=== PATIENT | male | born 1945 | race Caucasian/White ===

== ENCOUNTER 2023-11-30 20:56 | Emergency (ER) | payer MEDICARE ==
[~2023-11-30] VITALS: Ht 172.7 cm; Wt 99.8 kg
[2023-11-30 21:07] VITALS: BP 156/75
[2023-11-30] MEDS ORDERED: METO25 (21:13)
[2023-11-30 21:26] LABS: BASOPHILS ABSOLUTE AUTO 0.07 K/mm3 (0.00-0.23); BASOPHILS PERCENT AUTO 1 % (0-2); EOSINOPHILS ABSOLUTE AUTO 0.19 K/mm3 (0.00-0.68); EOSINOPHILS PERCENT AUTO 3 % (0-6); Hemoglobin 11.6 g/dL (13.5-17.5); IMMATURE GRAN ABSOLUTE AUTO 0.02 K/mm3 (0.00-0.10); IMMATURE GRAN PERCENT AUTO 0 % (0-1); LYMPHOCYTES ABSOLUTE AUTO 1.49 K/mm3 (0.84-5.20); LYMPHOCYTES PERCENT AUTO 20 % (21-46); MONOCYTES ABSOLUTE AUTO 0.66 K/mm3 (0.16-1.47); MONOCYTES PERCENT AUTO 9 % (4-13); Mean Corpuscular HGB Conc 33.1 g/dL (31.5-36.5); Mean Corpuscular Volume 99 fL (80-100); Mean Platelet Volume 12.8 fL (9.1-12.4); NEUTROPHILS ABSOLUTE AUTO 4.97 K/mm3 (1.96-9.15); NEUTROPHILS PERCENT AUTO 67 % (41-73); Platelet Count 152 K/mm3 (150-400); RDW Coefficient Variation 12.1 % (11.7-14.2); Red Blood Cell Count 3.52 M/mm3 (4.30-5.90)
[2023-11-30 21:44] LABS: Albumin, Blood 3.8 g/dL (3.4-5.0); Albumin/Globulin Ratio 1.1 (0.8-1.8); Bilirubin, Total 0.8 mg/dL (0.1-1.0); Bun/Creatinine Ratio 31.2 (12.0-20.0); Calcium, Blood 8.9 mg/dL (8.5-10.1); Creatinine, Blood 0.8 mg/dL (0.60-1.20); Globulin, Blood 3.4 g/dL (2.2-4.0); Potassium, Blood 3.7 mmol/L (3.5-5.5); Total Protein, Blood 7.2 g/dL (6.4-8.2)
== END 2023-11-30 23:11 | disposition home or self-care (01) ==
LOC: ER 20:56
PROVIDERS: Physician Assistant
DX: A09 Infectious gastroenteritis and colitis, unspecified (principal); Z88.5 Allergy status to narcotic agent
CPT/HCPCS: 80053; 85025; 96360; 96361; 99284-25; J7030

== ENCOUNTER 2024-06-19 02:44 | Inpatient (IN) | payer MEDICARE ==
[~2024-06-19] VITALS: Ht 175.3 cm; Wt 86.9 kg
[~2024-06-19 02:44] MED LIST: METO25
[2024-06-19] MEDS ORDERED: FentaNYL Citrate 50 MCG/ML 2 ML Injection IV PRN (03:50)
[2024-06-19] MEDS ORDERED: NS 1,000 ML IV SCH (04:15)
[2024-06-19 04:25] LABS: BASOPHILS ABSOLUTE AUTO 0.05 K/mm3 (0.00-0.23); BASOPHILS PERCENT AUTO 1 % (0-2); EOSINOPHILS ABSOLUTE AUTO 0.06 K/mm3 (0.00-0.68); EOSINOPHILS PERCENT AUTO 1 % (0-6); Hematocrit 33.7 % (37.0-53.0); Hemoglobin 11.1 g/dL (13.5-17.5); IMMATURE GRAN ABSOLUTE AUTO 0.02 K/mm3 (0.00-0.10); IMMATURE GRAN PERCENT AUTO 0 % (0-1); LYMPHOCYTES ABSOLUTE AUTO 0.98 K/mm3 (0.84-5.20); LYMPHOCYTES PERCENT AUTO 12 % (21-46); MONOCYTES PERCENT AUTO 8 % (4-13); Mean Corpuscular HGB 32.9 pg (26.0-34.0); Mean Corpuscular HGB Conc 32.9 g/dL (31.5-36.5); Mean Corpuscular Volume 100 fL (80-100); Mean Platelet Volume 11.8 fL (9.1-12.4); NEUTROPHILS ABSOLUTE AUTO 6.58 K/mm3 (1.96-9.15); NEUTROPHILS PERCENT AUTO 79 % (41-73); Platelet Count 143 K/mm3 (150-400); RDW Coefficient Variation 12.2 % (11.7-14.2); RDW Standard Deviation 45.1 fL (35.1-46.3); Red Blood Cell Count 3.37 M/mm3 (4.30-5.90); White Blood Cell Count 8.39 K/mm3 (4.00-11.30)
[2024-06-19 04:48] LABS: Albumin, Blood 3.6 g/dL (3.4-5.0); Albumin/Globulin Ratio 1.2 (0.8-1.8); Bilirubin, Total 0.9 mg/dL (0.1-1.0); Calcium, Blood 8.6 mg/dL (8.5-10.1); Creatinine, Blood 0.89 mg/dL (0.60-1.20); Potassium, Blood 4.1 mmol/L (3.5-5.5); Total Protein, Blood 6.6 g/dL (6.4-8.2)
[2024-06-19] MEDS ORDERED: Lactated Ringer's 1,000 ML IV SCH (07:30)
[2024-06-19] MEDS ORDERED: Ondansetron 4 MG TAB PO PRN (07:30)
[2024-06-19] MEDS ORDERED: OxyCODONE HCL 5 MG TAB PO PRN (07:30)
[2024-06-19] MEDS ORDERED: HYDROmorphone HCl/Pf 1MG SYR IV PRN (07:30)
[2024-06-19] MEDS ORDERED: Acetaminophen 325 MG TABLET PO PRN (07:35)
[2024-06-19] MEDS ORDERED: Sennosides 8.6 MG Tab PO SCH (09:00)
[2024-06-19 10:52] VITALS: BP 121/94
[2024-06-19 10:53] VITALS: BP 110/63
[2024-06-19] MEDS ORDERED: CARBIDOPA LEVODOPA PO (11:10)
[2024-06-19] MEDS ORDERED: ZESTRIL40 M1 PO (11:11)
[2024-06-19 14:18] VITALS: BP 103/75
[2024-06-19] MEDS ORDERED: Levodopa/Carbidopa 100 / 25 MG Tab PO SCH (15:00)
--- NOTE | 2024-06-19 17:53 | NUR ---
SHIFT SUMMARY PT ADMITTED THIS SHIFT FOR R HIP FX, A/OX4, VSS, TOLERATED A SIP OF WATER WHEN HE TOOK HIS MEDS, DIET ORDERED FOR DINNER AFTER SURGERY SAID NO SURGERY WOULD BE HAPPENIN TODAY, HARD OF HEARING BUT ABLE TO UNERSTAND IF STAFF SPEAKS LOUDER TO HIM, POLITE AND COOPERATIVE WITH STAFF, BEDREST ORDERED. NO ACUTE EVENTS THIS SHIFT, CALL LIGHT IN REACH.
[2024-06-19 20:37] VITALS: BP 117/58
[2024-06-20 03:56] VITALS: BP 125/63
--- NOTE | 2024-06-20 05:04 | NUR ---
SHIFT SUMMARY S/P R HIP FX R/T GLF. NO ACUTE CHANGES OVERNIGHT. PT NPO SINCE MIDNIGHT IN ANTICIPATION OF POSSIBLE SURGERY TODAY. PT USES URINAL, NO BM OVERNIGHT. PT ON BEDREST OVERNIGHT. PT REPORTS INCREASED PAIN WHEN BENDING AT HIPS, MEDICATED PER EMAR- PT REPORTS TOLERABLE. PT SLEPT WELL OVERNIGHT. CALL LIGHT IN REACH, BED IN LOWEST POSITION, WILL REPORT TO DAY RN.
[2024-06-20 05:07] LABS: BASOPHILS ABSOLUTE AUTO 0.04 K/mm3 (0.00-0.23); BASOPHILS PERCENT AUTO 1 % (0-2); EOSINOPHILS ABSOLUTE AUTO 0.13 K/mm3 (0.00-0.68); EOSINOPHILS PERCENT AUTO 2 % (0-6); Hemoglobin 10.5 g/dL (13.5-17.5); IMMATURE GRAN ABSOLUTE AUTO 0.01 K/mm3 (0.00-0.10); IMMATURE GRAN PERCENT AUTO 0 % (0-1); LYMPHOCYTES ABSOLUTE AUTO 0.75 K/mm3 (0.84-5.20); LYMPHOCYTES PERCENT AUTO 12 % (21-46); MONOCYTES ABSOLUTE AUTO 0.77 K/mm3 (0.16-1.47); MONOCYTES PERCENT AUTO 12 % (4-13); Mean Corpuscular HGB 33.2 pg (26.0-34.0); Mean Corpuscular HGB Conc 32.8 g/dL (31.5-36.5); Mean Corpuscular Volume 101 fL (80-100); Mean Platelet Volume 11.3 fL (9.1-12.4); NEUTROPHILS ABSOLUTE AUTO 4.57 K/mm3 (1.96-9.15); NEUTROPHILS PERCENT AUTO 73 % (41-73); Platelet Count 125 K/mm3 (150-400); RDW Coefficient Variation 12.3 % (11.7-14.2); RDW Standard Deviation 46.3 fL (35.1-46.3); Red Blood Cell Count 3.16 M/mm3 (4.30-5.90); White Blood Cell Count 6.27 K/mm3 (4.00-11.30)
[2024-06-20 05:26] LABS: Albumin, Blood 3.4 g/dL (3.4-5.0); Albumin/Globulin Ratio 1.2 (0.8-1.8); Bilirubin, Total 1.9 mg/dL (0.1-1.0); Calcium, Blood 8.5 mg/dL (8.5-10.1); Creatinine, Blood 0.8 mg/dL (0.60-1.20); Globulin, Blood 2.9 g/dL (2.2-4.0); Potassium, Blood 4.2 mmol/L (3.5-5.5); Total Protein, Blood 6.3 g/dL (6.4-8.2)
[2024-06-20 07:27] VITALS: BP 113/59
[2024-06-20] MEDS ORDERED: Lisinopril 20 MG Tab PO SCH (09:00)
[2024-06-20 14:16] VITALS: BP 122/73
--- NOTE | 2024-06-20 16:35 | NUR ---
SHIFT SUMMARY NONSURGICAL R HIP FX. PHYSICAL THERAPY EVAL TODAY. TTWB. PT UNABLE TO FOLLOW MOST INSTRUCTIONS R/T TO COGNITION. PT A+O X4 THIS MORNING, BUT CONFUSED THIS AFTERNOON AND NEEDING TO BE REORIENTED FREQUENTLY. DILAUDID FOR PAIN X1 THIS AM, BUT PT APPEARS COMFORTABLE AT REST IN BED. ASSISTING PT WITH URINAL. FAMILY UPDATED ON TREATMENT PLAN. BED ALARM IN PLACE FOR SAFETY. CALL LIGHT WITHIN REACH.
[2024-06-20 19:23] VITALS: BP 104/76
[2024-06-21 04:32] VITALS: BP 87/56
[2024-06-21 04:39] VITALS: BP 104/65
[2024-06-21 04:43] LABS: BASOPHILS ABSOLUTE AUTO 0.02 K/mm3 (0.00-0.23); BASOPHILS PERCENT AUTO 0 % (0-2); EOSINOPHILS PERCENT AUTO 0 % (0-6); Hemoglobin 11.9 g/dL (13.5-17.5); IMMATURE GRAN ABSOLUTE AUTO 0.11 K/mm3 (0.00-0.10); IMMATURE GRAN PERCENT AUTO 1 % (0-1); LYMPHOCYTES ABSOLUTE AUTO 0.37 K/mm3 (0.84-5.20); LYMPHOCYTES PERCENT AUTO 2 % (21-46); MONOCYTES ABSOLUTE AUTO 1.02 K/mm3 (0.16-1.47); MONOCYTES PERCENT AUTO 6 % (4-13); Mean Corpuscular HGB 33.4 pg (26.0-34.0); Mean Corpuscular Volume 98 fL (80-100); Mean Platelet Volume 12.1 fL (9.1-12.4); NEUTROPHILS ABSOLUTE AUTO 14.69 K/mm3 (1.96-9.15); NEUTROPHILS PERCENT AUTO 91 % (41-73); Platelet Count 130 K/mm3 (150-400); RDW Standard Deviation 43.7 fL (35.1-46.3); Red Blood Cell Count 3.56 M/mm3 (4.30-5.90); White Blood Cell Count 16.21 K/mm3 (4.00-11.30)
[2024-06-21] MEDS ORDERED: NS 500 ML IV ONE ×2 (04:50→15:25)
--- NOTE | 2024-06-21 04:50 | NUR ---
MANAGER CHINESE CALLED RN TO ROOM REGARDING VS.BP 87/56,HEART RATE BETWEEN 128-137 RHYTHMN PRESENTS REGULAR,R/A 02 SAT 84-85%,PT HAS BEEN REMOVING HIS O2 TONIGHT.CURRENTLY REPLACED O2 AT 3L WITH SATS 92 % PT HAS HX PARKINSONS AND HAS ALSO BEEN CONFUSED TONIGHT.I CALLED DR COPE WITH REPORT OF ABOVE AND ORDER WAS RECEIVED FOR TELE AND 500 ML NS BOLUS.LABS REVIEWED WITH CALL.
[2024-06-21 04:58] LABS: Bun/Creatinine Ratio 34.8 (12.0-20.0); Calcium, Blood 8.8 mg/dL (8.5-10.1); Creatinine, Blood 1.12 mg/dL (0.60-1.20); Potassium, Blood 4.4 mmol/L (3.5-5.5)
--- NOTE | 2024-06-21 06:04 | NUR ---
DR CONSULT DR NOTIFIED OF TELE EVENTS. 0540- AFIB c PVS, 0556 - TACHY IN 150S. LOPRESSOR x1 ORDERED PER EMAR.
[2024-06-21] MEDS ORDERED: Metoprolol Tartrate 1 MG/ML 5 ML VIAL IV ONE (06:10)
[2024-06-21 06:20] VITALS: BP 124/92
--- NOTE | 2024-06-21 06:33 | NUR ---
SHIFT SUMMARY S/P R HIP FX R/T GLF. PT A&O x1-2, PT HAS MOMENTS OF CLEAR CONVERSATION BUT REMAINS CONFUSED AND NOT ORIENTED TO SITUATION. PT UNABLE TO TOLERATE ORALS WITH MORNING MED PASS, ATTEMPTED TO HAVE PT DRINK WATER- POOR SUCK REFLEX & PT DID NOT SWALLOW WATER. IV FLUIDS INFUSING PER EMAR. VS: PT ON 3-4L O2 VIA NC TO MAINTAIN SAT >90%, TELE- AFIB, TACHY UP TO 150s. PT INCONTINENT, DOES NOT CALL TO USE URINAL, ATTEND IN USE; NO BM OVERNIGHT. PT REPORTS NO PAIN OVERNIGHT, MINIMAL WINCING WHEN ROLLING PT. PT ATTEMPTING TO GET OUT OF BED INDEPENDENTLY, ORDERED BEDREST c TTWB ON RLE. POSSIBLE MRI TODAY. CALL LIGHT IN REACH, BED IN LOWEST POSITION, REPORT GIVEN TO DAY RN.
[2024-06-21 08:18] VITALS: BP 117/88
--- NOTE | 2024-06-21 09:23 | NUR ---
MENTATION: PT CONFUSED, MUMBLING. PT CANT SEEM TO FIGURE OUT HOW TO USE STRAW TO DRINK. PT REFUSING PO MEDS OR SIPS OF LIQUIDS. STATES HE "DOESNT TRUST" STAFF. PT STATES HE WANTED TO TALK TO . ASSISTED PT TO CALL SPOUSE AND TALK TO HER. STATES SHE WILL ASK SON TO COME IN TO SEE PATIENT.
--- NOTE | 2024-06-21 10:00 | NUR ---
TELEMETRY: PT CONVERTED TO NSR IN THE 70'S.
--- NOTE | 2024-06-21 12:29 | NUR ---
PO INTAKE: FAMILY IN TO SEE PATIENT. UPDATED ON PLAN OF CARE. FAMILY LOVING AND ATTENTIVE. WILL BRING IN PT COMFORT ITEMS. FAMILY SHARED LIST OF FOODS PT LIKES TO HELP HIM START EATING. ABLE TO GET PT TO TAKE SEVERAL BITES OF FOOD AND PT DRINKING LIQUIDS WITHOUT SIGNS OF CHOKING.
[2024-06-21 15:01] VITALS: BP 82/65
--- NOTE | 2024-06-21 15:25 | NUR ---
BLOOD PRESSURE: PT HYPOTENSIVE 80'S/60'S. TELE REMAINS NSR IN THE 70'S. PT HAS POOR PO INTAKE AND UO. BLADDER SCAN 105CC RESULT. LR INFUSING AT 50CC/HR. NOTIFIED AND BOLUS ORDERED. MAINTENENCE FLUID RATE CHANGED TO 100CC/HR. WILL MONITOR EFFECTIVENESS.
[2024-06-21] MEDS ORDERED: CefTRIAXone Sodium 1,000 MG in NS 100 ML IV SCH (16:40)
[2024-06-21] MEDS ORDERED: NS 1,000 ML IV SCH (16:40)
--- NOTE | 2024-06-21 17:17 | NUR ---
CXR COMPLETED. WILL AWAIT RESULTS.
--- NOTE | 2024-06-21 18:49 | NUR ---
PT NONSURGICAL BEDREST PATIENT. UNABLE TO FOLLOW WEIGHT BEARING RESTRICTIONS. PT REMAINS CONFUSED, PULLS AT LINE. LOW BLOOD PRESSURE THIS SHIFT. BOLUS X1. MAINTENENCE FLUIS INCREASED. PT HAS NOT VOIDED. UA ORDERED WHEN VOIDS. ATTENDS ON. MEPILEX TO COCCYX, PREVENTATIVE. BLOOD CULTURES DRAWN. CXR COMPLETED. O2 AT 2L AT THIS TIME. NO COUGH. TELE IN PLACE. CONVERTED FROM AFIB TO NSR. PT WBC COUNT INCREASED. STARTED ON REOCEPHIN POST BLOOD CULTURES. AM LABS ORDERED. BED ALARM ON.
[2024-06-21 19:44] VITALS: BP 91/69
[2024-06-22] VITALS (34 sets, daily range): BP systolic 61–106; BP diastolic 48–83
[2024-06-22 04:34] LABS: BASOPHILS ABSOLUTE AUTO 0.02 K/mm3 (0.00-0.23); BASOPHILS PERCENT AUTO 0 % (0-2); EOSINOPHILS PERCENT AUTO 0 % (0-6); Hematocrit 34.6 % (37.0-53.0); Hemoglobin 11.8 g/dL (13.5-17.5); IMMATURE GRAN ABSOLUTE AUTO 0.09 K/mm3 (0.00-0.10); IMMATURE GRAN PERCENT AUTO 1 % (0-1); LYMPHOCYTES ABSOLUTE AUTO 0.63 K/mm3 (0.84-5.20); LYMPHOCYTES PERCENT AUTO 4 % (21-46); MONOCYTES ABSOLUTE AUTO 0.92 K/mm3 (0.16-1.47); MONOCYTES PERCENT AUTO 5 % (4-13); Mean Corpuscular HGB 33.4 pg (26.0-34.0); Mean Corpuscular HGB Conc 34.1 g/dL (31.5-36.5); Mean Corpuscular Volume 98 fL (80-100); Mean Platelet Volume 12.3 fL (9.1-12.4); NEUTROPHILS ABSOLUTE AUTO 15.57 K/mm3 (1.96-9.15); NEUTROPHILS PERCENT AUTO 90 % (41-73); Platelet Count 122 K/mm3 (150-400); RDW Coefficient Variation 12.4 % (11.7-14.2); RDW Standard Deviation 44.6 fL (35.1-46.3); Red Blood Cell Count 3.53 M/mm3 (4.30-5.90); White Blood Cell Count 17.23 K/mm3 (4.00-11.30)
[2024-06-22 04:55] LABS: Albumin, Blood 3.2 g/dL (3.4-5.0); Albumin/Globulin Ratio 0.9 (0.8-1.8); Bilirubin, Total 2.3 mg/dL (0.1-1.0); Bun/Creatinine Ratio 31.6 (12.0-20.0); Calcium, Blood 8.5 mg/dL (8.5-10.1); Creatinine, Blood 2.09 mg/dL (0.60-1.20); Globulin, Blood 3.4 g/dL (2.2-4.0); Phosphorus, Blood 4.9 mg/dL (2.5-4.9); Potassium, Blood 4.4 mmol/L (3.5-5.5); Total Protein, Blood 6.6 g/dL (6.4-8.2)
--- NOTE | 2024-06-22 05:22 | NUR ---
SHIFT SUMMARY MARGOT WAS ALERT AND ORIENTED TO SELF AT START OF SHIFT. PT CONFUSED. UA COLLECTED AND SENT TO LAB. PT B/P NOTED TO BE TRENDING DOWN, DR PEREZ, LACTIC ACID ORDERED, CRITICAL RESULT RECIEVED 2.2. HOSPITALIST NOTIFIED. NO ACUTE EVENTS TONIGHT NO OTHER CHANGES NOTED.
[2024-06-22 05:40] LABS: Source, Urine Clean Catch
[2024-06-22 05:42] LABS: Blood, Urine 1+ (Neg); Glucose Qualitative, Urine Neg (Neg); Ketones, Urine 1+ (Neg); Leukocyte Esterase, Urine 3+ (Neg); Nitrite, Urine Neg (Neg); Protein, Urine 2+ (Neg); Urobilinogen, Urine 2+ (Normal)
--- NOTE | 2024-06-22 05:46 | NUR ---
PT WITH CONTINUED CONFUSION THIS SHIFT AND CONT HYPOTENSION,REVIEWED PT RECORDS AND CALLED DR REQUESTING LACTIC DRAW.LACTIC WAS DRAWN AND RESULTS REPORTED BACK POSITIVE.U/A WAS SENT,IV FLUIDS ALREADY INFUSING.RESULTS REPORTED TO DR COPE.
[2024-06-22 05:49] LABS: Appearance, Urine Hazy (Clear); Bilirubin, Urine 1+ (Neg); Color, Urine Yellow (P-Yellow)
[2024-06-22 05:53] LABS: Amorphous Mod (0-Heavy); Bacteria Mod /hpf; Calcium Oxalate Crystals Rare /hpf; Granular Casts 0-2 /lpf (0); Squamous Epithelial Cells Many /hpf (Few)
--- NOTE | 2024-06-22 13:42 | NUR ---
Trevena TYLER NOTIFIED THIS RN AT 1330 THAT PT CONVERTED FROM NSR TO AFIB, SUSTAINED 120'S TO 130'S. BP 97/65, TEMP 98.6, O2 SATURATION 92%, AND RR 20. PT REPORTS FEELING SHORT OF BREATH, HE IS SLIGHTLY DIAPHORETIC, LUNG SOUNDS DIM T/O WITH CRACKLES IN THE BASES. DR. MOREIRA NOTIFIED AT 1339 OF CHANGE IN PT'S CONDITION. WAITING FOR ORDERS AT THIS TIME.
[2024-06-22] MEDS ORDERED: Digoxin 0.25 MG/ML 2ML Amp IV ONE (14:00)
[2024-06-22] MEDS ORDERED: LevoFLOXacin 500MG/D5W 100ML 100 ML IV ONE (14:00)
[2024-06-22] MEDS ORDERED: Enoxaparin 30 MG/0.3 ML SYR SC SCH (14:20)
[2024-06-22] MEDS ORDERED: Furosemide 20 MG Tab PO SCH (14:20)
[2024-06-22 14:37] LABS: Albumin, Blood 2.9 g/dL (3.4-5.0); Albumin/Globulin Ratio 0.9 (0.8-1.8); Bilirubin, Direct 0.6 mg/dL (0.0-0.3); Bilirubin, Indirect 0.9 mg/dL (0.1-0.7); Bilirubin, Total 1.5 mg/dL (0.1-1.0); Bun/Creatinine Ratio 36.9 (12.0-20.0); Calcium, Blood 8.2 mg/dL (8.5-10.1); Creatinine, Blood 1.98 mg/dL (0.60-1.20); Globulin, Blood 3.2 g/dL (2.2-4.0); Potassium, Blood 3.8 mmol/L (3.5-5.5); Total Protein, Blood 6.1 g/dL (6.4-8.2)
--- NOTE | 2024-06-22 14:50 | NUR ---
DIGOXIN GIVEN AND HR IS NOW LOW 100'S, PT REMAINS IN AFIB. PT'S RESP RATE AND EFFORT APPEARS IMPROVED. SPOKE WITH DR. MOREIRA REGARDING NEED FOR DVT PROPHYLAXIS, LOVENOX ORDERED AND ADMINISTERED. LEVAQUIN ABX STARTED, SEE EMAR. TELEGRAPHER AGENT COMPLETING ECHO AT THIS TIME.
[2024-06-22] MEDS ORDERED: Aspirin 325 MG Tab PO SCH (16:00)
[2024-06-22] MEDS ORDERED: Atorvastatin 40 MG Tab PO SCH (16:00)
--- NOTE | 2024-06-22 16:37 | NUR ---
REPORT GIVEN TO MARISA MCCRAY IN PCU. PT TRANSPORTED TO [facility] AT 1635. PT'S FAMILY NOTIFIED BY DR. MOREIRA OF TRANSFER TO HIGHER LEVEL OF CARE. DR. BOWENS ROUNDED ON PT PRIOR TO TRANSFER TO PCU.
[2024-06-22 16:39] LABS: Anti-Xa UFH, PHA Monitoring <0.10 IU/mL; International Normalized Ratio 1.24; Prothrombin Time Results 13.1 Sec (9.7-11.5)
[2024-06-22] MEDS ORDERED: Aspirin 325 MG Tab PO ONE (16:50)
[2024-06-22] MEDS ORDERED: Dose Adjust by Pharmacy XX STA (16:58)
[2024-06-22] MEDS ORDERED: Heparin Sodium,Porcine/0.5 NS 500 ML IV SCH (17:00)
--- NOTE | 2024-06-22 18:05 | NUR ---
TRANSFER NOTE/SHIFT SUMMARY PT ARRIVED TO PCU FROM SURGICAL FLOOR AT APPROX 1430. BEDS TRADED. PT ALERT, ORIENTED TO SELF, PERSON. STEP SON IN ROOM, INFORMATION WRITTEN ON WHITE BOARD. SP02>90% ON 2L NC. DENIES SOB. TELEMETRY SHOWS AFIB, HR MOSTLY 90'S-100'S. BP SOFT, SEE VITALS. HEP GTT INITIATED PER PHARMACY/EMAR. ASPIRIN AND LIPITOR GIVEN PER EMAR. POWERGLIDE INSERTED TO FANNY. PT STATES NEED TO HAVE BM. PT PLACED ON BED JAIN. LOOSE BROWN BM. LINEN CHANGE, BED BATH GIVEN. PT ORIETNED TO ROOM, CALL LIGHT. BED ALARM ON.
--- NOTE | 2024-06-22 18:53 | NUR ---
UPDATE TELEMTRY NOTIFIED THIS RN OF SOFT BP. CALL PLACED TO PARACHUTE INSPECTOR HOSPITALIST. AWAITING RETURN CALL.
[2024-06-22] MEDS ORDERED: Midodrine 5 MG Tab PO ONE (20:20)
[2024-06-22] MEDS ORDERED: Albumin (Human) 25gm/100ml 100 ML IV ONE (20:20)
[2024-06-22] MEDS ORDERED: NS 250 ML IV ONE (22:00)
[2024-06-23] VITALS (15 sets, daily range): BP systolic 68–94; BP diastolic 50–73
[2024-06-23] MEDS ORDERED: NS 500 ML IV SCH
[2024-06-23] MEDS ORDERED: Dose Adjust by Pharmacy XX STA ×4 (00:25→21:39)
[2024-06-23 04:18] LABS: BASOPHILS ABSOLUTE AUTO 0.02 K/mm3 (0.00-0.23); BASOPHILS PERCENT AUTO 0 % (0-2); EOSINOPHILS ABSOLUTE AUTO 0.06 K/mm3 (0.00-0.68); EOSINOPHILS PERCENT AUTO 1 % (0-6); Hematocrit 30.4 % (37.0-53.0); Hemoglobin 10.7 g/dL (13.5-17.5); IMMATURE GRAN ABSOLUTE AUTO 0.03 K/mm3 (0.00-0.10); IMMATURE GRAN PERCENT AUTO 0 % (0-1); LYMPHOCYTES ABSOLUTE AUTO 0.69 K/mm3 (0.84-5.20); LYMPHOCYTES PERCENT AUTO 7 % (21-46); MONOCYTES ABSOLUTE AUTO 0.67 K/mm3 (0.16-1.47); MONOCYTES PERCENT AUTO 7 % (4-13); Mean Corpuscular HGB 33.8 pg (26.0-34.0); Mean Corpuscular HGB Conc 35.2 g/dL (31.5-36.5); Mean Corpuscular Volume 96 fL (80-100); Mean Platelet Volume 12.6 fL (9.1-12.4); NEUTROPHILS ABSOLUTE AUTO 8.44 K/mm3 (1.96-9.15); NEUTROPHILS PERCENT AUTO 85 % (41-73); Platelet Count 125 K/mm3 (150-400); RDW Coefficient Variation 12.3 % (11.7-14.2); RDW Standard Deviation 43.2 fL (35.1-46.3); Red Blood Cell Count 3.17 M/mm3 (4.30-5.90); White Blood Cell Count 9.91 K/mm3 (4.00-11.30)
[2024-06-23 04:37] LABS: Bun/Creatinine Ratio 43.7 (12.0-20.0); Calcium, Blood 7.8 mg/dL (8.5-10.1); Creatinine, Blood 1.67 mg/dL (0.60-1.20); Potassium, Blood 3.6 mmol/L (3.5-5.5)
--- NOTE | 2024-06-23 05:29 | NUR ---
SHIFT SUMMARY ASSUMED CARE OF PT AT 1900. OFFGOING RN REPORTED SOFT B/P AND NOTIFIED MD. PT A&O2 WHICH IS REPORTED TO BE BASELINE. LUNGS SOUND CLEAR. AND B/P STILL SOFT BUT PT ASYMPTOMATIC. NOTIFIED MD OF SOFT BP AND MD ORDERED ALBUMIN AND MIDODRINE. HEP GTTS AT 15U/KG/HR THEN INCREASED TO 17U/KG/HR BASED ON PTT VALUE. PT ASSISTED WITH Q2H TURNS. RESIDENT CAME TO BEDSIDE TO EVALUATE AND ORDERS PLACED FOR 250ML BOLUS. BP IMPROVED WITH BOLUS.
[2024-06-23] MEDS ORDERED: Aspirin 81 MG Chew PO SCH (09:00)
[2024-06-23] MEDS ORDERED: Furosemide 20 MG Tab PO SCH (09:00)
[2024-06-23] MEDS ORDERED: NS 250 ML IV PRN (09:10)
[2024-06-23] MEDS ORDERED: NS 250 ML IV ONE (11:10)
[2024-06-23] MEDS ORDERED: LevoFLOXacin 250MG/D5W 50ML 50 ML IV SCH (12:00)
--- NOTE | 2024-06-23 18:16 | NUR ---
Shift summary. Pt remained in bed this shift, weak and painful. Mentation seems to be improving based on NS report. Pt oriented to self/surroundings. Coccyx pressure wound noted this shift, photo in chart. Pt BP remains soft, provider aware. See chart for further details.
--- NOTE | 2024-06-23 21:31 | NUR ---
ASSUMED CARE PT IS DROWSY, BUT AROUSES SPONTANEOUSLY AND IS ABLE TO STAY AWAKE DURING ASSESSMENT. ORIENTED X3-4. PT IS SOFT SPOKEN AND IS DIFFICULT TO COMPREHEND AT TIMES. PT DENIES PAIN IN HIP DURING REST; EDUCATED PT ON IMPORTANCE OF MANAGING PAIN. PT IS RESTING QUIETLY AT THIS TIME. DENIES CP, SOB, AND NAUSEA. HEPARIN INFUSING PER EMAR. CALLED PT'S BACK W/ UPDATE ON PT.
[2024-06-23] MEDS ORDERED: Midodrine 5 MG Tab PO PRN (23:20)
--- NOTE | 2024-06-24 01:28 | NUR ---
UPDATE EARLIER IN SHIFT. DR BARKER NOTIFIED OF PT'S COCCYX WOUND
[2024-06-24 04:51] VITALS: BP 84/56
--- NOTE | 2024-06-24 05:54 | NUR ---
SHIFT SUMMARY PT RESTED QUIETLY T/O NIGHT. MENTATION APPEARS UNCHANGED FROM BEGINNING OF SHIFT. PT CONTINUES TO DENY PAIN EXCEPT W/ REPOSITIONING. HEPARIN INFUSING AT SAME RATE. NO ACUTE EVENTS OVERNIGHT.
[2024-06-24 08:14] LABS: BASOPHILS ABSOLUTE AUTO 0.03 K/mm3 (0.00-0.23); BASOPHILS PERCENT AUTO 1 % (0-2); EOSINOPHILS ABSOLUTE AUTO 0.16 K/mm3 (0.00-0.68); EOSINOPHILS PERCENT AUTO 2 % (0-6); Hematocrit 31.7 % (37.0-53.0); IMMATURE GRAN ABSOLUTE AUTO 0.02 K/mm3 (0.00-0.10); IMMATURE GRAN PERCENT AUTO 0 % (0-1); LYMPHOCYTES ABSOLUTE AUTO 0.63 K/mm3 (0.84-5.20); LYMPHOCYTES PERCENT AUTO 10 % (21-46); MONOCYTES ABSOLUTE AUTO 0.62 K/mm3 (0.16-1.47); MONOCYTES PERCENT AUTO 9 % (4-13); Mean Corpuscular HGB 34.2 pg (26.0-34.0); Mean Corpuscular HGB Conc 34.7 g/dL (31.5-36.5); Mean Corpuscular Volume 98 fL (80-100); Mean Platelet Volume 12.3 fL (9.1-12.4); NEUTROPHILS PERCENT AUTO 78 % (41-73); Platelet Count 142 K/mm3 (150-400); RDW Coefficient Variation 12.5 % (11.7-14.2); RDW Standard Deviation 45.2 fL (35.1-46.3); Red Blood Cell Count 3.22 M/mm3 (4.30-5.90); White Blood Cell Count 6.66 K/mm3 (4.00-11.30)
[2024-06-24 08:31] LABS: Albumin, Blood 2.5 g/dL (3.4-5.0); Albumin/Globulin Ratio 0.8 (0.8-1.8); Bilirubin, Total 0.9 mg/dL (0.1-1.0); Bun/Creatinine Ratio 45.9 (12.0-20.0); Calcium, Blood 7.9 mg/dL (8.5-10.1); Creatinine, Blood 1.35 mg/dL (0.60-1.20); Globulin, Blood 3.1 g/dL (2.2-4.0); Potassium, Blood 3.8 mmol/L (3.5-5.5); Total Protein, Blood 5.6 g/dL (6.4-8.2)
[2024-06-24 10:22] LABS: CK TOTAL 799 U/L (39-308); CK-BB 0 % (0-0); CK-MACRO TYPE I 0 % (0-0); CK-MACRO TYPE II 0 % (0-0); CK-MB 2 % (0-4); CK-MM 98 % (96-100)
[2024-06-24 12:21] VITALS: BP 92/62
[2024-06-24] MEDS ORDERED: Vancomycin HCL 1,750 MG in NS 500 ML IV SCH (16:00)
[2024-06-24 16:30] VITALS: BP 81/54
--- NOTE | 2024-06-24 17:11 | NUR ---
SHIFT SUMMARY: ASSUMED CARE AT 0700. PT BP STABLE W/ MAP ABOVE 60 THROUGHOUT SHIFT. REMOVED PT OFF 1 LITER OF 02, SATUATION REMAINING ABOVE 94%, RA. PT WORKED W/ PT IN BED BUT DID NOT GET PT OUT OF BED DUE TO SOFT B/P. PT WAS ABLE TO FEED HIMSELF THIS MORNING BUT NEEDED ASSISTANCE AT LUNCH TIME. PT WAS A/A/O X4. PEERLA. MINIMAL MOVEMENT W/ EXTERMITIES ENCOURAGED MOVEMENT W/ CARE. OPTIFOAM DRESSING TO COCCYX, PHOTOS IN CHART. Q2 TURNS, BEDBATH COMPLETED, MALE EXTERNAL PUREWIK IN PLACE TO SUCTION. WILL CONTINUE TO MONITOR AND TREAT UNTIL CHANGE OF SHIFT.
[2024-06-24 20:28] VITALS: BP 81/53
[2024-06-24 23:58] VITALS: BP 93/76
[2024-06-25 03:20] VITALS: BP 92/59
[2024-06-25 04:45] LABS: Albumin, Blood 2.6 g/dL (3.4-5.0); Albumin/Globulin Ratio 0.9 (0.8-1.8); Bilirubin, Total 0.8 mg/dL (0.1-1.0); Bun/Creatinine Ratio 41.6 (12.0-20.0); Calcium, Blood 8.1 mg/dL (8.5-10.1); Creatinine, Blood 1.25 mg/dL (0.60-1.20); Potassium, Blood 3.7 mmol/L (3.5-5.5); Total Protein, Blood 5.6 g/dL (6.4-8.2)
--- NOTE | 2024-06-25 05:07 | NUR ---
SHIFT SUMMARY PT A&O X3, ABLE TO MAKE NEEDS KNOWN. PT CONFUSED AT TIMES BUT IS EASILY REDIRECTABLE. VSS, AFEBRILE, HYPOTENSIVE BUT MAP REMAINS >65. PT ASYMPTOMATIC. HE DENIES CP OR SOB. HIP PAIN MEDICATED PER EMAR. MALE PW IN PLACE DRAINING YELLOW URINE. UPDATED THIS SHIFT ON PT STATUS. HEPARIN GTT INFUSING. PT IS RESTING QUIETLY IN BED, CALL LIGHT WITHIN REACH, BREATHING EVEN AND UNLABORED.
[2024-06-25 06:29] LABS: Hematocrit 29.7 % (37.0-53.0); Hemoglobin 10.2 g/dL (13.5-17.5); Mean Platelet Volume 12.5 fL (9.1-12.4); Platelet Count 145 K/mm3 (150-400)
[2024-06-25 07:40] VITALS: BP 87/60
--- NOTE | 2024-06-25 07:43 | NUR ---
ASSUMPTION OF CARE ASSUMING CARE AT 0700. BEDSIDE SHIFT REPORT, PT REQUESTED PAIN MEDICATION. MEDICATED PER EMAR W/ PRN OXYCODONE.
[2024-06-25] MEDS ORDERED: Apixaban 5 MG Tab PO SCH (09:00)
[2024-06-25] MEDS ORDERED: Midodrine 2.5 MG Tab PO SCH (09:00)
[2024-06-25] MEDS ORDERED: CefTRIAXone 1000 MG Vial ONE (09:34)
[2024-06-25] MEDS ORDERED: NS 100 ML IV ONE (09:34)
[2024-06-25 11:55] VITALS: BP 101/72
[2024-06-25 15:56] VITALS: BP 102/75
[2024-06-25] MEDS ORDERED: Vancomycin HCL 1,250 MG in NS 250 ML IV SCH (16:00)
--- NOTE | 2024-06-25 17:32 | NUR ---
SHIFT SUMMARY PT A&O X2 (SELF AND SITUATION) AT TIMES. CONFUSTION SEEMS TO INCREASE IN THE EVENINGS. WORKED W/ PT ASSISTED TO SIDE OF BED WITH GAIT BELT AND TWO STAFF MEMEBERS, UNABLE TO SIT UNASSISTED. BED [facility] TODAY, MEPILEX CHANGED AND REPLACED FOR PREVENTIVE MEASURES. SPEECH EVAL: DIET CHANGED FROM [facility] SOFT TO PUREE DIET AND MEDS CRUSHED WITH APPLE SAUCE. ABLE TO MOVE WITH ENCOURAGEMENT, HAS DIFFICULTLY FOLLOWING INSTRUCTIONS. TWO PERSON ASSIT FOR Q2 TURNS DURING SHIFT. POWERGLIDE DRESSING CHANGED. HEPARIN D/C SWITCHED TO ELIQUIS. SPOUSE UPDATED ON PLAN OF CARE VIA PHONE. B/P STABLE W/ MIDODRINE SBP 90-100 THROUGHTOUT SHIFT. WILL CONTINUE TO MONITOR UNTIL END OF SHIFT.
[2024-06-25 19:40] VITALS: BP 101/64
[2024-06-25 23:22] VITALS: BP 101/71
[2024-06-26 03:48] VITALS: BP 98/75
[2024-06-26 04:09] LABS: BASOPHILS ABSOLUTE AUTO 0.02 K/mm3 (0.00-0.23); BASOPHILS PERCENT AUTO 0 % (0-2); EOSINOPHILS ABSOLUTE AUTO 0.11 K/mm3 (0.00-0.68); EOSINOPHILS PERCENT AUTO 2 % (0-6); Hematocrit 29.8 % (37.0-53.0); Hemoglobin 10.2 g/dL (13.5-17.5); IMMATURE GRAN ABSOLUTE AUTO 0.03 K/mm3 (0.00-0.10); IMMATURE GRAN PERCENT AUTO 0 % (0-1); LYMPHOCYTES ABSOLUTE AUTO 0.54 K/mm3 (0.84-5.20); LYMPHOCYTES PERCENT AUTO 8 % (21-46); MONOCYTES ABSOLUTE AUTO 0.74 K/mm3 (0.16-1.47); MONOCYTES PERCENT AUTO 11 % (4-13); Mean Corpuscular HGB 33.7 pg (26.0-34.0); Mean Corpuscular HGB Conc 34.2 g/dL (31.5-36.5); Mean Corpuscular Volume 98 fL (80-100); Mean Platelet Volume 11.9 fL (9.1-12.4); NEUTROPHILS ABSOLUTE AUTO 5.42 K/mm3 (1.96-9.15); NEUTROPHILS PERCENT AUTO 79 % (41-73); Platelet Count 153 K/mm3 (150-400); RDW Coefficient Variation 12.7 % (11.7-14.2); RDW Standard Deviation 45.3 fL (35.1-46.3); Red Blood Cell Count 3.03 M/mm3 (4.30-5.90); White Blood Cell Count 6.86 K/mm3 (4.00-11.30)
[2024-06-26 04:27] LABS: Albumin, Blood 2.7 g/dL (3.4-5.0); Albumin/Globulin Ratio 0.8 (0.8-1.8); Bilirubin, Total 0.9 mg/dL (0.1-1.0); Bun/Creatinine Ratio 38.3 (12.0-20.0); Calcium, Blood 8.3 mg/dL (8.5-10.1); Creatinine, Blood 1.07 mg/dL (0.60-1.20); Globulin, Blood 3.4 g/dL (2.2-4.0); Potassium, Blood 3.5 mmol/L (3.5-5.5); Total Protein, Blood 6.1 g/dL (6.4-8.2)
--- NOTE | 2024-06-26 05:36 | NUR ---
SHIFT SUMMARY THIS RN ASSUMED CARE OF PATIENT AT 1900. PT A&O X2-4 DURING THIS SHIFT. HX OF DEMENTIA. BED ALARM ON FOR SAFETY. PT CALM AND COOPERATIVE WITH CARE. SBP 90-100'S. AFIB WITH HR 80-90'S. OTHER VSS. REPOSITIONING Q2HRS. MEPILEX TO COCCYX AND BILATERAL HEELS/ELBOWS. PT CONTINENT/INCONTINENT. ATTEMPTED MALE PUREWICK FOR ACCURATE I'S/O'S, PT PULLED OFF. USING ATTENDS AND URINAL WHEN PT CONTINENT. PT WITH SMALL CLEAR/MUCOUSY WITH BROWN TINGED BOWEL MOVEMENT. BED IN LOWEST POSITION AND CALL LIGHT WITHIN REACH. THIS RN WILL REPORT TO ONCOMING DAYSHIFT RN.
[2024-06-26 07:19] VITALS: BP 125/84
[2024-06-26] MEDS ORDERED: NS 100 ML IV ONE (08:39)
[2024-06-26] MEDS ORDERED: CefTRIAXone 1000 MG Vial ONE (08:39)
[2024-06-26] MEDS ORDERED: Metoprolol Succinate 25 MG TABCR PO SCH (10:00)
[2024-06-26 10:31] VITALS: BP 107/72
[2024-06-26] MEDS ORDERED: Lisinopril 5 MG Tab PO SCH (11:00)
--- NOTE | 2024-06-26 15:14 | NUR ---
Met with pt's daughter in law Shraddha outside of pt's room for a goals of care discussion. She reports the pt has had the symptoms of Parkinsons for "years" and only recently began taking carbidopa/levadopa for this. The patient was unable to feel any sensation in his feet when checked by physician. The patient declined to participate in the conversation, stating he's "too tired." Next was a conference call with pt's Shell, pt's son, and SMILEY Llanes. They are all on board with moving forward with hospice and will discuss with the patient, who has indicated he does not wish to pursue rehab. Shraddha requests she get the calls from hospice to set up equipment, and they have chosen [email or web address]. Notified CM.
[2024-06-26 15:29] VITALS: BP 91/58
--- NOTE | 2024-06-26 16:14 | NUR ---
Shraddha's phone number (daughter in law) [phone]
--- NOTE | 2024-06-26 18:11 | NUR ---
SHIFT SUMMARY; ASSUMED CARE AT 0700, A/A/OX2 DURING SHIFT. ABLE TO ANSWER QUESTIONS APPROPRIATLY AT TIMES AND CONFUSED AT OTHERS, DIFFICULTY FOLLOWING COMMANDS. MOVING SELF ON GURNEY BETTER THAN PREVIOUS SHIFT. SITS UP IN BED INDEPENANTLY FOR A FEW MINUTES. WORKED WITH PT. TRANSFER TO RECLINER CHAIR IN AFTERNOON WITH ASSIST. VSS, MEDICATED FOR PAIN PER EMAR. NO ACUTE MEDICAL CHANGES, WILL CONTINUE TO MONITOR AND TREAT UNTIL CHANGE OF SHIFT.
[2024-06-26 19:29] VITALS: BP 108/68
[2024-06-26] MEDS ORDERED: Lactobacil 2-S.Thermo-Bifido 1 1 Cap PO SCH (21:00)
[2024-06-26 23:33] VITALS: BP 102/62
[2024-06-27 03:40] VITALS: BP 92/64
[2024-06-27 04:22] LABS: BASOPHILS ABSOLUTE AUTO 0.03 K/mm3 (0.00-0.23); BASOPHILS PERCENT AUTO 0 % (0-2); EOSINOPHILS ABSOLUTE AUTO 0.19 K/mm3 (0.00-0.68); EOSINOPHILS PERCENT AUTO 3 % (0-6); Hematocrit 28.8 % (37.0-53.0); Hemoglobin 9.6 g/dL (13.5-17.5); IMMATURE GRAN ABSOLUTE AUTO 0.02 K/mm3 (0.00-0.10); IMMATURE GRAN PERCENT AUTO 0 % (0-1); LYMPHOCYTES ABSOLUTE AUTO 0.69 K/mm3 (0.84-5.20); LYMPHOCYTES PERCENT AUTO 9 % (21-46); MONOCYTES ABSOLUTE AUTO 0.84 K/mm3 (0.16-1.47); MONOCYTES PERCENT AUTO 11 % (4-13); Mean Corpuscular HGB 33.2 pg (26.0-34.0); Mean Corpuscular HGB Conc 33.3 g/dL (31.5-36.5); Mean Corpuscular Volume 100 fL (80-100); Mean Platelet Volume 12.5 fL (9.1-12.4); NEUTROPHILS ABSOLUTE AUTO 5.85 K/mm3 (1.96-9.15); NEUTROPHILS PERCENT AUTO 77 % (41-73); Platelet Count 139 K/mm3 (150-400); RDW Coefficient Variation 12.7 % (11.7-14.2); RDW Standard Deviation 46.4 fL (35.1-46.3); Red Blood Cell Count 2.89 M/mm3 (4.30-5.90); White Blood Cell Count 7.62 K/mm3 (4.00-11.30)
--- NOTE | 2024-06-27 04:33 | NUR ---
SHIFT SUMMARY THIS RN ASSUMED CARE OF PATIENT AT 1900. A&O X2-4. MENTATION WAXES/WANES. PT REPORTED FEELING TIRED. APPEARED TO HAVE SLEPT FOR THE MAJORITY OF THIS NOC SHIFT. RESPIRATIONS EVEN AND UNLABORED WITH NOTED CHEST RISE/FALL. SBP 90'S. OTHERWISE VSS. AFIB WITH HR 80'S. MALE PUREWICK IN PLACE FOR INCONTINENCE. REPOSITIONING Q2HRS. NEW MEPILEX TO COCCYX. MEPILEX TO LEFT ELBOW FOR PREVENTION. PT PULLED OFF PREVENTATIVE MEPILEX TO BILATERAL HEELS. BED IN LOWEST POSITION AND CALL LIGHT WITHIN REACH. THIS RN WILL REPORT TO ONCOMING DAYSHIFT RN.
[2024-06-27 04:45] LABS: Albumin, Blood 2.7 g/dL (3.4-5.0); Albumin/Globulin Ratio 0.9 (0.8-1.8); Calcium, Blood 8.1 mg/dL (8.5-10.1); Creatinine, Blood 1.03 mg/dL (0.60-1.20); Globulin, Blood 3.1 g/dL (2.2-4.0); Potassium, Blood 3.5 mmol/L (3.5-5.5); Total Protein, Blood 5.8 g/dL (6.4-8.2)
[2024-06-27] MEDS ORDERED: CefTRIAXone 1000 MG Vial ONE (08:33)
[2024-06-27] MEDS ORDERED: NS 100 ML IV ONE (08:33)
[2024-06-27 08:41] VITALS: BP 86/54
[2024-06-27] MEDS ORDERED: Potassium Chloride 10 Meq Tablet SA PO SCH (09:00)
[2024-06-27 11:47] VITALS: BP 86/53
[2024-06-27] MEDS ORDERED: Lisinopril2.5 MG PO (14:12)
[2024-06-27] MEDS ORDERED: ELIQUIS5 M2 PO (14:12)
[2024-06-27] MEDS ORDERED: FURO20 PO (14:13)
[2024-06-27] MEDS ORDERED: ATOR80 PO (14:13)
[2024-06-27] MEDS ORDERED: METO25ER PO (14:13)
[2024-06-27] MEDS ORDERED: ASPI81CH PO (14:13)
[2024-06-27] MEDS ORDERED: ONDA4 PO (14:15)
[2024-06-27] MEDS ORDERED: MIDO5 PO (14:15)
[2024-06-27] MEDS ORDERED: Acetaminophen325 M1 PO (14:16)
[2024-06-27] MEDS ORDERED: POTA10T PO (14:16)
[2024-06-27] MEDS ORDERED: SENN187 PO (14:16)
[2024-06-27] MEDS ORDERED: OXAYDO5 M1 PO (14:18)
--- NOTE | 2024-06-27 15:42 | NUR ---
CARE ASSUMPTION/DISCHARGE NOTE ASSUMED CARE OF PT AT 0700 THIS AM. SEE DOCUMENTED VS AND ASSESSMENT. NO ACUTE CHANGES NOTED T/O THE DAY. PT OOB TO CHAIR W 2 STAFF ASSIST. PER RAFAEL FROM CARE MANAGEMENT, PLAN IS FOR PT TO GO HOME ON HOSPICE THIS AFTERNOON. PT MEDICATED FOR R HIP PAIN X 2, SEE EMAR. PT DISCHARGED BACK TO ASS[facility]ED [facility]IV[facility] ([facility] ON HOSPICE, ARRANGED BY CARE MANAGEMENT, VIA AMBULANCE. ALL BELONGINGS SENT HOME W PT. ASSISTED LIVING FACILITY IS AWARE OF PT'S RETURN. PT WILL BE ON [facility]. NO FURTHER DISCHARGE NEEDS IDENTIFIED.
== END 2024-06-27 15:29 | disposition home or self-care (01) | DRG 535 ==
LOC: ER 02:44 → PCU 07:27 → SURS 07:27 → PCU 06-22 16:30
PROVIDERS: Emergency Medicine; Family Medicine; Hospitalist; ADMIT Family Medicine
DX: S72.111A Displaced fracture of greater trochanter of right femur, initial encounter for closed fracture (principal); A41.9 Sepsis, unspecified organism; I21.A1 Myocardial infarction type 2; I50.21 Acute systolic (congestive) heart failure; N17.9 Acute kidney failure, unspecified; J81.1 Chronic pulmonary edema; N39.0 Urinary tract infection, site not specified; E87.20 Acidosis, unspecified; I95.9 Hypotension, unspecified; G20.A1 Parkinson's disease without dyskinesia, without mention of fluctuations; B95.7 Other staphylococcus as the cause of diseases classified elsewhere; Z66 Do not resuscitate; R74.01 Elevation of levels of liver transaminase levels; I48.0 Paroxysmal atrial fibrillation; I45.10 Unspecified right bundle-branch block; F02.C0 Dementia in other diseases classified elsewhere, severe, without behavioral disturbance, psychotic disturbance, mood disturbance, and anxiety; R13.10 Dysphagia, unspecified; I11.0 Hypertensive heart disease with heart failure; W18.30XA Fall on same level, unspecified, initial encounter; Z88.0 Allergy status to penicillin; Z88.5 Allergy status to narcotic agent; Z79.899 Other long term (current) drug therapy; Z88.8 Allergy status to other drugs, medicaments and biological substances
CPT/HCPCS: 36415; 71045; 72192; 73502; 73552; 76770; 80048; 80053; 81001; 82247; 82248; 82436; 82550; 82552; 83605; 83735; 83880; 84100; 84300; 84484; 85014; 85018; 85025; 85049; 85520; 85610; 85730; 86850; 86900; 86901; 87040; 87077; 87086; 87186; 92523; 92526; 92610; 93005; 93010; 94760; 94762; 96361; 96374; 96376; 97110; 97162; 97530; 99285-25; A9270; C8929; J0696; J1160; J1170; J1644; J1650; J1956; J3010; J3370; J7030; J7040; J7050; J7120; P9047; Q9957